=== PATIENT | male | born 1980 | race Hispanic/Latino ===

== ENCOUNTER 2017-04-18 23:39 | Emergency (ER) | payer BC ==
[2017-04-19 00:03] VITALS: BMI 21.6
[2017-04-19 00:13] VITALS: TEMP 98.6
--- NOTE | 2017-04-19 01:00 | ED PDOC ---
Arrival/HPI - General Chief Complaint: Medical Clearance Time Seen by Provider: 04/18/17 23:53 Historian: Patient - History of Present Illness Narrative History of Present Illness (Text): 04/19/17 23:55 Abel Avila is a 36 year old male complaining pain to the gumline of left upper molar area for 2 days. Patient states that he was concerned and took Advil OTC with no improvement. Patient is in no distress, denies any fevers, chills, facial pain, headache, URI symptoms, or any other complaints at this time. Time/Duration: < week Symptom Onset: Gradual Symptom Course: Unchanged Severity Level: Mild Activities at Onset: Rest Context: Home Past Medical History - Provider Review Nursing Documentation Reviewed: Yes - Psychiatric Hx Substance Use: No Family/Social History - Physician Review Nursing Documentation Reviewed: Yes Family/Social History: No Known Family HX Smoking Status: Never Smoked Hx Alcohol Use: Yes Frequency of alcohol use: Socially Hx Substance Use: No Allergies/Home Meds Allergies/Adverse Reactions: Allergies No Known Allergies Allergy (Verified 04/19/17 00:02) Home Medications: Home Meds Medication Instructions Recorded Confirmed No Known Home Med 04/19/17 04/19/17 Review of Systems - Physician Review All systems were reviewed & negative as marked: Yes - Review of Systems Constitutional: absent: Fevers, Night Sweats Eyes: absent: Vision Changes ENT: Other (Pain to gumline to left upper molar area). absent: Hearing Changes Respiratory: absent: SOB, Cough Cardiovascular: absent: Chest Pain Gastrointestinal: absent: Abdominal Pain Genitourinary Male: absent: Dysuria, Frequency Musculoskeletal: absent: Arthralgias, Back Pain Skin: absent: Rash, Pruritis Neurological: absent: Headache, Dizziness Endocrine: absent: Diaphoresis, Polyuria Physical Exam Vital Signs Reviewed: Yes Vital Signs Temp Pulse Resp BP Pulse Ox 04/19/17 01:29 69 17 149/88 98 04/19/17 00:12 98.6 F 61 18 169/107 H 99 Temperature: Afebrile Blood Pressure: Hypertensive Pulse: Regular Respiratory Rate: Normal Appearance: Positive for: Well-Appearing, Non-Toxic, Comfortable Pain Distress: None Mental Status: Positive for: Alert and Oriented X 3 - Systems Exam Head: Present: Atraumatic, Normocephalic Pupils: Present: PERRL Extroacular Muscles: Present: EOMI Conjunctiva: Present: Normal Mouth: Present: Moist Mucous Membranes, Normal Teeth, Other (two circular lesions to the gumline of left upper molar area; no facial or gumline swelling) Pharnyx: Present: Other (nontender surgical lymphadenopathy) Neck: Present: Normal Range of Motion Respiratory/Chest: Present: Clear to Auscultation, Good Air Exchange. No: Respiratory Distress, Accessory Muscle Use Cardiovascular: Present: Regular Rate and Rhythm, Normal S1, S2. No: Murmurs Abdomen: Present: Normal Bowel Sounds. No: Tenderness, Distention, Peritoneal Signs Back: Present: Normal Inspection Upper Extremity: Present: Normal Inspection. No: Cyanosis, Edema Lower Extremity: Present: Normal Inspection. No: Edema Neurological: Present: GCS=15, CN II-XII Intact, Speech Normal Skin: Present: Warm, Dry, Normal Color. No: Rashes Psychiatric: Present: Alert, Oriented x 3, Normal Insight, Normal Concentration Medical Decision Making ED Course and Treatment: 04/19/17 02:13 Impression: 36 year old male complaining of pain to gumline of left upper molar area for 2 days. Differential Diagnosis included but are not limited to: toothache, stomatitis, dental abscess Plan: -- Tylenol and Famvir -- Reassess and disposition Progress Notes: Patient medicated with tylenol and 1 dose of famvir for his stomatitis which is likely due to viral infection. Patient made aware of likely diagnosis and advised to f/u with his pmd in 2 days without fail for re-evaluation. - Medication Orders Current Medication Orders: Discontinued Medications Acetaminophen (Tylenol 325mg Tab) 975 mg PO STAT STA Stop: 04/19/17 01:00 Last Admin: 04/19/17 01:25 Dose: 975 mg Famciclovir (Famvir) 1,500 mg PO STAT STA Stop: 04/19/17 00:55 Last Admin: 04/19/17 01:20 Dose: 1,500 mg - PA / GERMAN TEACHER / Resident Statement MD/DO has reviewed & agrees with the documentation as recorded. - Scribe Statement The provider has reviewed the documentation as recorded by the Edil Smith Provider Scribe Attestation: All medical record entries made by the [employer] were at my direction and personally dictated by me. I have reviewed the chart and agree that the record accurately reflects my personal performance of the history, physical exam, medical decision making, and the department course for this patient. I have also personally directed, reviewed, and agree with the discharge instructions and disposition. Disposition/Present on Arrival - Present on Arrival Any Indicators Present on Arrival: No History of DVT/PE: No History of Uncontrolled Diabetes: No Urinary Catheter: No History of Decub. Ulcer: No History Surgical Site Infection Following: None - Disposition Have Diagnosis and Disposition been Completed?: Yes Diagnosis: Stomatitis Disposition: HOME/ ROUTINE Disposition Time: 00:58 Patient Plan: Discharge Condition: STABLE Discharge Instructions (ExitCare): Herminia العلي (ED) Print Language: TAMAZIGHT Additional Instructions: Thank you for letting us take care of you today. You were treated for stomatitis. The emergency medical care you received today was directed at your acute symptoms. It may take several days for your symptoms to resolve. Return to the Emergency Department if your symptoms worsen, do not improve, or if you have any other problems. Please contact your doctor in 2 days for re-evaluation and follow up / or call one of the physicians/clinics you have been referred to that are listed on the Patient Visit Information form that is included in your discharge packet. Bring any paperwork you were given at discharge with you along with any medications you are taking to your follow up visit. Our treatment cannot replace ongoing medical care by a primary care provider (PCP) outside of the emergency department. [facility] of your care today. Referrals: Brianna Springer MD [Staff Provider] - Follow up with primary [facility] [place] [Outside] - Follow up with primary Forms: [employer] (Georgian), WORK NOTE
[2017-04-19 01:30] VITALS: BP 149/88; PULSE 69; RESP 17; O2SAT 98
== END 2017-04-19 01:29 | disposition home or self-care (01) ==
LOC: ED 23:39
DX: K12.1 Other forms of stomatitis (principal)

== ENCOUNTER 2018-09-13 17:11 | Emergency (ER) | payer BC ==
[2018-09-13 17:26] VITALS: BMI 20.9
[2018-09-13 17:32] VITALS: BP 128/98; PULSE 102; RESP 18; TEMP 97.7; O2SAT 100
[2018-09-13] MEDS ORDERED: Bacitracin 500 Units/gm Oint Foilpak UD TOP ONE (17:57)
--- NOTE | 2018-09-13 18:03 | ED PDOC ---
Arrival/HPI - General Chief Complaint: Trauma Time Seen by Provider: 09/13/18 17:26 Historian: Patient - History of Present Illness Narrative History of Present Illness (Text): 09/13/18 17:58 38yo male with no pmhx who present with complaint of lump and abrasion to his forehead s/p trauma 2hours ago. States he hit his head on a wall and fell. He reports mild pain to the area. Otherwise denies LOC, nausea, vomiting, visual changes, dizziness, any focal weakness. Past Medical History - Provider Review Nursing Documentation Reviewed: Yes - Infectious Disease Hx of Infectious Diseases: None - Psychiatric Hx Substance Use: No Family/Social History - Physician Review Nursing Documentation Reviewed: Yes Family/Social History: Unknown Family HX Smoking Status: Never Smoked Hx Alcohol Use: Yes (last drink, last night) Hx Substance Use: No Allergies/Home Meds Allergies/Adverse Reactions: Allergies No Known Allergies Allergy (Verified 04/19/17 00:02) Review of Systems - Physician Review All systems were reviewed & negative as marked: Yes - Review of Systems Constitutional: Normal Eyes: Normal ENT: Normal Respiratory: Normal Cardiovascular: Normal Gastrointestinal: Normal Genitourinary Male: Normal Musculoskeletal: Normal Skin: Other (Abrasion and contusion to forehead) Neurological: Normal Endocrine: Normal Hemo/Lymphatic: Normal Psychiatric: Normal Physical Exam Vital Signs Reviewed: Yes Vital Signs Temp Pulse Resp BP Pulse Ox 09/13/18 17:11 97.7 F 102 H 18 128/98 H 100 Temperature: Afebrile Blood Pressure: Normal Pulse: Regular Respiratory Rate: Normal Appearance: Positive for: Well-Appearing, Non-Toxic, Comfortable Pain Distress: None Mental Status: Positive for: Alert and Oriented X 3 - Systems Exam Head: Present: Normocephalic, Contusion (Approximately 3 x 3cm contusion to right sided forehead with overlaying abrasion noted). No: Atraumatic Pupils: Present: PERRL Extroacular Muscles: Present: EOMI Conjunctiva: Present: Normal Mouth: Present: Moist Mucous Membranes Neck: Present: Normal Range of Motion Respiratory/Chest: Present: Clear to Auscultation, Good Air Exchange. No: Respiratory Distress, Accessory Muscle Use Cardiovascular: Present: Regular Rate and Rhythm, Normal S1, S2. No: Murmurs Abdomen: No: Tenderness, Distention, Peritoneal Signs Back: Present: Normal Inspection Upper Extremity: Present: Normal Inspection. No: Cyanosis, Edema Lower Extremity: Present: Normal Inspection. No: Edema Neurological: Present: GCS=15, CN II-XII Intact, Speech Normal Skin: Present: Warm, Dry, Normal Color. No: Rashes Psychiatric: Present: Alert, Oriented x 3, Normal Insight, Normal Concentration Medical Decision Making ED Course and Treatment: 09/14/18 01:42 PT presented to ED for stated history. He was neurologically intact. He denied LOC and any other complaint in ED Abrasion was cleansed with NS and bacitracine applied. Ice was applied to area and Tylenol was given Pt was DC home and advised to apply ice to area and return to ED for any worsening symptoms - Medication Orders Current Medication Orders: Acetaminophen (Tylenol 325mg Tab) 650 mg PO STAT STA Stop: 09/13/18 17:58 Bacitracin (Bacitracin) 1 ea TOP ONCE ONE Stop: 09/13/18 17:58 Disposition/Present on Arrival - Present on Arrival Any Indicators Present on Arrival: No History of DVT/PE: No History of Uncontrolled Diabetes: No Urinary Catheter: No History of Decub. Ulcer: No History Surgical Site Infection Following: None - Disposition Have Diagnosis and Disposition been Completed?: Yes Diagnosis: Contusion Disposition: HOME/ ROUTINE Disposition Time: 18:10 Patient Plan: Discharge Condition: STABLE Discharge Instructions (ExitCare): Contusion (DC) Additional Instructions: Apply ice to area and keep wound clean and dry Return to ED for dizziness, nausea, any other complaint Follow up with your doctor Prescriptions: Bacitracin Ointment [Bacitracin] 30 gm TOP BID #1 tube Referrals: Estefani Cramer MD [Medical Doctor] - Follow up with primary Forms: [employer] (Romanian)
== END 2018-09-13 18:29 | disposition home or self-care (01) ==
LOC: ED 17:11
DX: S00.83XA Contusion of other part of head, initial encounter (principal); W22.01XA Walked into wall, initial encounter